=== PATIENT | male | born 1990 | race Caucasian/White ===

== ENCOUNTER → 2019-03-06 12:53 | Outpatient (BNVA) | payer MEDICAID, SELFPAY | PROVIDERS: PCP Family Medicine; Visit Provider Social Worker Clinical | DX: F20.89 Other schizophrenia (principal) | CPT/HCPCS: 90834 ==

== ENCOUNTER → 2019-03-25 13:40 | Outpatient (BNVA) | payer MEDICAID, SELFPAY | PROVIDERS: PCP Family Medicine; Visit Provider Social Worker Clinical | DX: F20.9 Schizophrenia, unspecified (principal) | CPT/HCPCS: 90834 ==

== ENCOUNTER → 2019-04-29 09:25 | Outpatient (BNVA) | payer MEDICAID, SELFPAY | PROVIDERS: PCP Family Medicine; Visit Provider Nurse Practitioner Psychiatric/Mental Health | DX: F20.9 Schizophrenia, unspecified (principal) | CPT/HCPCS: 99214 ==

== ENCOUNTER → 2019-06-03 07:49 | Outpatient (BNVA) | payer MEDICAID, SELFPAY | PROVIDERS: PCP Family Medicine; Visit Provider Nurse Practitioner Psychiatric/Mental Health | DX: F20.9 Schizophrenia, unspecified (principal) | CPT/HCPCS: 99213 ==

== ENCOUNTER → 2019-07-01 08:25 | Outpatient (BNVA) | payer MEDICAID, SELFPAY | PROVIDERS: PCP Family Medicine; Visit Provider Nurse Practitioner Psychiatric/Mental Health | DX: Z51.81 Encounter for therapeutic drug level monitoring (principal); F20.9 Schizophrenia, unspecified; F32.9 Major depressive disorder, single episode, unspecified; F17.210 Nicotine dependence, cigarettes, uncomplicated; F33.42 Major depressive disorder, recurrent, in full remission | CPT/HCPCS: 99213 ==

== ENCOUNTER → 2019-07-29 12:58 | Outpatient (BNVA) | payer MEDICAID, SELFPAY | PROVIDERS: PCP Family Medicine; Visit Provider Nurse Practitioner Psychiatric/Mental Health | DX: F20.9 Schizophrenia, unspecified (principal); Z79.899 Other long term (current) drug therapy | CPT/HCPCS: 99213 ==

== ENCOUNTER → 2019-07-31 08:28 | Outpatient (BNVA) | payer MEDICAID, SELFPAY | PROVIDERS: PCP Family Medicine; Visit Provider Social Worker Clinical | DX: F20.9 Schizophrenia, unspecified (principal); F32.9 Major depressive disorder, single episode, unspecified | CPT/HCPCS: 90834 ==

== ENCOUNTER → 2019-08-26 07:45 | Outpatient (BNVA) | payer MEDICAID, SELFPAY | PROVIDERS: PCP Family Medicine; Visit Provider Nurse Practitioner Psychiatric/Mental Health | DX: F20.9 Schizophrenia, unspecified (principal); Z51.81 Encounter for therapeutic drug level monitoring; F33.42 Major depressive disorder, recurrent, in full remission; Z79.899 Other long term (current) drug therapy | CPT/HCPCS: 80053; 80061; 83036; 99213 ==

== ENCOUNTER 2019-08-27 20:23 | Emergency (ER) | payer MEDICAID, SELFPAY ==
[2019-08-27 20:29] VITALS: BP 150/77; PULSE 108; RESP 18; TEMP 37.3; O2SAT 98; BMI 22.1
--- NOTE | 2019-08-27 21:05 | W.ED.GENADLT ---
HPI - General Adult General: Chief complaint: General Medical Stated complaint: spot on tongue Time Seen by Provider: 08/27/19 20:59 Source: patient Mode of arrival: ambulatory Limitations: no limitations History of Present Illness: HPI narrative: 28-year-old male states he has had irritation along with pain to the side of his tongue over the last 3 days. He states he had something similar 1 month ago. He denies any fevers. He denies any bleeding. He denies any worsening improving factors. He denies any difficulty swallowing. Associated symptoms: Deny chest pain, dyspnea, headache(s), nausea, rash or vomiting Review of Systems Const: Denies: fever(s), chills, body aches or change in appetite Eyes: Denies: blurry vision or eye discomfort ENMT: Denies: throat pain or dental pain Card: Denies: chest pain Resp: Denies: dyspnea GI: Denies: abdominal pain, nausea, vomiting or diarrhea : Denies: dysuria Musc: Denies: neck pain or back pain Skin/Breast: Denies: rash Neuro: Denies: headache(s) Psych: Denies: depression Davonte/Lymph: Denies: easy bruising All/Imm: Denies: urticaria PFSH ED PFSH: Medical History (Updated 08/27/19 @ 21:05 by Nati Dsouza MD) Chronic schizophrenia Depression Continue to monitor symptoms for definitive diagnosis and response to medication. Schizophrenia Social History (Updated 07/01/19 @ 13:39 by Elinor Mckeon LPN) Smoking and tobacco status: current every day smoker cigarettes Packs smoked per day: 1 Years cigarettes smoked: 7 Quit status (tobacco): not considering quitting Second hand smoke exposure: Yes Physical Exam Const: COMMON NORMALS: no acute distress, patient oriented x3 and healthy appearing HENMT: COMMON NORMALS: normocephalic and atraumatic HEAD & SCALP: normocephalic and atraumatic TEETH & GINGIVA: Yes other (Irritation to the right lateral aspect of patient's tongue) Eye: COMMON NORMALS: Equal, round and reactive pupils present and EOMs intact bilaterally PUPIL: Yes Equal, round and reactive pupils present Neck/C-Spine: COMMON NORMALS: full ROM and supple Chest: COMMONS NORMALS: normal inspection of the chest and normal palpation of entire chest wall Resp: COMMON NORMALS: normal respiratory effort, No retractions, No use of accessory muscles and clear to auscultation bilaterally AUSCULTATION: clear to auscultation bilaterally Cardio: COMMON NORMALS: regular rate, regular rhythm and No murmurs present (Cardio) RATE: regular rate RHYTHM: regular rhythm GI: COMMON NORMALS: Normal to inspection, nondistended, normoactive bowel sounds present, Soft to palpation, non-tender and no masses PALPATION: Yes Soft to palpation Extremity: COMMON NORMALS: normal to inspection and full ROM Neuro: COMMON NORMALS: patient oriented x3, moves all extremities and no focal motor deficits Psych: COMMON NORMALS: mental status grossly normal, Normal thought process present and cooperative THOUGHT PROCESS: Normal thought process present Skin: COMMON NORMALS: no rashes or lesions noted and no wounds GENERAL SKIN EXAM: no rashes or lesions noted Course Vital Signs: Vital signs: Vital Signs Temperature 99.1 F 08/27/19 20:29 Pulse Rate 108 H 08/27/19 20:29 Respiratory Rate 18 08/27/19 20:29 Blood Pressure 150/77 08/27/19 20:29 Pulse Oximetry 98 08/27/19 20:29 MDM - General Adult MDM Narrative: Medical decision making narrative: Joseph presents here with tongue pain along with irritation of his tongue. Patient has no abscess or thrush. He is to follow-up with ear nose and throat in 2 to 4 days and return if worsening. Discharge Plan Discharge Patient Disposition: Home, Self-Care Clinical Impression: Tongue pain Condition: Stable Prescriptions: New Naprosyn 500 mg tablet 500 mg PO BID PRN (Reason: pain) Qty: 20 RF: 0 No Action Invega Sustenna 156 mg/mL syringe 156 mg IM Q30D Qty: 1 RF: 4 paliperidone 6 mg tablet extended release 24hr 6 mg PO QAM Qty: 10 RF: 2 Discharge Orders: Discharge Order (Routine); Ordered 08/27/19 Ordered By: Nati Dsouza Referrals: Vernon Ruiz MD [Primary Care Provider] - Denys Amin MD [Physician] - 1-3 days Discharge Diet: Advance as tolerated Discharge Activity: Resume usual activity Activity Restrictions/Additional Instructions: Take meds as prescribed. Return to ER if worsening or fever. Follow-up with ENT in 2 to 4 days. Coding Level of Care Code ED Automobile Taillight Assembler for Chg Fwd Exam Comprehensive
--- NOTE | 2019-08-29 11:06 | DCPLANNER ---
senior project manager had message to schedule a follow up appointment for patient with . senior project manager printed off patients information, and faxed the information to Dr. Robles office. Clinic will call spring encaser and patient with appointment information.
--- NOTE | 2019-08-30 09:04 | DCPLANNER ---
Camille from Dr. Robles office called family independence case manager stating that a follow up appointment is scheduled for Monday, September 11, 2019 at 2:[address] Amin. Clinic will call patient with appointment information.
--- NOTE | 2019-09-12 14:00 | DCPLANNER ---
Patient did attend appointment with Dr. Amin.
== END 2019-08-27 21:15 | disposition home or self-care (01) ==
PROVIDERS: Emergency Provider Emergency Medicine; PCP Family Medicine
DX: K14.6 Glossodynia (principal); F17.210 Nicotine dependence, cigarettes, uncomplicated
CPT/HCPCS: 12345; 99281; 99282

== ENCOUNTER → 2019-09-23 09:02 | Outpatient (BNVA) | payer MEDICAID, SELFPAY | PROVIDERS: PCP Family Medicine; Visit Provider Nurse Practitioner Psychiatric/Mental Health | DX: F20.9 Schizophrenia, unspecified (principal) | CPT/HCPCS: 96372; 99212 ==

== ENCOUNTER → 2019-10-21 12:45 | Outpatient (BNVA) | payer MEDICAID, SELFPAY | PROVIDERS: PCP Family Medicine; Visit Provider Nurse Practitioner Psychiatric/Mental Health | DX: F20.9 Schizophrenia, unspecified (principal); F41.1 Generalized anxiety disorder | CPT/HCPCS: 96372; 99212 ==

== ENCOUNTER → 2019-11-18 07:58 | Outpatient (BNVA) | payer MEDICAID, SELFPAY | PROVIDERS: PCP Family Medicine; Visit Provider Nurse Practitioner | DX: F20.9 Schizophrenia, unspecified (principal) | CPT/HCPCS: 99203 ==

== ENCOUNTER → 2019-12-30 13:47 | Outpatient (BNVA) | payer MEDICAID, SELFPAY | PROVIDERS: PCP Family Medicine; Visit Provider Nurse Practitioner Psychiatric/Mental Health | DX: F20.9 Schizophrenia, unspecified (principal) | CPT/HCPCS: 96372; 99212 ==

== ENCOUNTER → 2020-01-28 13:26 | Outpatient (BNVA) | payer MEDICAID, SELFPAY | PROVIDERS: PCP Family Medicine; Visit Provider Nurse Practitioner Psychiatric/Mental Health | DX: F20.9 Schizophrenia, unspecified (principal) | CPT/HCPCS: 90471; 96372; 99212 ==

== ENCOUNTER → 2020-02-25 13:10 | Outpatient (BNVA) | payer MEDICAID, SELFPAY | PROVIDERS: PCP Family Medicine; Visit Provider Nurse Practitioner Psychiatric/Mental Health | DX: F20.9 Schizophrenia, unspecified (principal) | CPT/HCPCS: 96372; 99212 ==

== ENCOUNTER → 2020-03-24 14:39 | Outpatient (BNVA) | payer MEDICAID, SELFPAY | PROVIDERS: PCP Family Medicine; Visit Provider Nurse Practitioner Psychiatric/Mental Health | DX: F20.9 Schizophrenia, unspecified (principal) | CPT/HCPCS: 96372; 99214 ==

== ENCOUNTER → 2020-04-21 12:38 | Outpatient (BNVA) | payer MEDICAID, SELFPAY | PROVIDERS: PCP Family Medicine; Visit Provider Nurse Practitioner Psychiatric/Mental Health | DX: F20.9 Schizophrenia, unspecified (principal) | CPT/HCPCS: 96372; 99213 ==

== ENCOUNTER → 2020-05-19 13:15 | Outpatient (BNVA) | payer MEDICAID, SELFPAY | PROVIDERS: PCP Family Medicine; Visit Provider Nurse Practitioner Psychiatric/Mental Health | DX: F20.9 Schizophrenia, unspecified (principal); F32.9 Major depressive disorder, single episode, unspecified | CPT/HCPCS: 96372; 99214 ==

== ENCOUNTER → 2020-06-16 13:06 | Outpatient (BNVA) | payer MEDICAID, SELFPAY | PROVIDERS: PCP Family Medicine; Visit Provider Nurse Practitioner Psychiatric/Mental Health | DX: F20.9 Schizophrenia, unspecified (principal); F32.9 Major depressive disorder, single episode, unspecified | CPT/HCPCS: 96372; 99213 ==

== ENCOUNTER → 2020-07-21 13:34 | Outpatient (BNVA) | payer MEDICAID, SELFPAY | PROVIDERS: PCP Family Medicine; Visit Provider Nurse Practitioner Psychiatric/Mental Health | DX: F20.9 Schizophrenia, unspecified (principal); F32.9 Major depressive disorder, single episode, unspecified; Z79.899 Other long term (current) drug therapy | CPT/HCPCS: 96372; 99213 ==

== ENCOUNTER → 2020-08-18 13:22 | Outpatient (BNVA) | payer MEDICAID, SELFPAY | PROVIDERS: PCP Family Medicine; Visit Provider Nurse Practitioner Psychiatric/Mental Health | DX: F20.9 Schizophrenia, unspecified (principal); F32.9 Major depressive disorder, single episode, unspecified | CPT/HCPCS: 96372; 99214 ==

== ENCOUNTER → 2020-09-15 11:21 | Outpatient (BNVA) | payer MEDICAID, SELFPAY | PROVIDERS: PCP Family Medicine; Visit Provider Nurse Practitioner Psychiatric/Mental Health | DX: F20.9 Schizophrenia, unspecified (principal); F32.9 Major depressive disorder, single episode, unspecified | CPT/HCPCS: 96372; 99213 ==

== ENCOUNTER → 2020-09-25 10:22 | Outpatient (BNVA) | payer MEDICAID, SELFPAY | PROVIDERS: PCP Family Medicine; Visit Provider Nurse Practitioner Psychiatric/Mental Health | DX: Z79.899 Other long term (current) drug therapy (principal) | CPT/HCPCS: 80061; 83036 ==

== ENCOUNTER → 2020-10-13 13:38 | Outpatient (BNVA) | payer MEDICAID, SELFPAY | PROVIDERS: PCP Family Medicine; Visit Provider Nurse Practitioner Psychiatric/Mental Health | DX: F20.9 Schizophrenia, unspecified (principal); F32.9 Major depressive disorder, single episode, unspecified | CPT/HCPCS: 96372; 99213 ==

== ENCOUNTER → 2020-11-12 14:32 | Outpatient (BNVA) | payer MEDICAID, SELFPAY | PROVIDERS: PCP Family Medicine; Visit Provider Nurse Practitioner Psychiatric/Mental Health | DX: F20.9 Schizophrenia, unspecified (principal); F32.9 Major depressive disorder, single episode, unspecified | CPT/HCPCS: 96372; 99213 ==

== ENCOUNTER → 2020-12-10 14:16 | Outpatient (BNVA) | payer MEDICAID, SELFPAY | PROVIDERS: PCP Family Medicine; Visit Provider Nurse Practitioner Psychiatric/Mental Health | DX: F20.9 Schizophrenia, unspecified (principal); F32.9 Major depressive disorder, single episode, unspecified | CPT/HCPCS: 96372; 99213 ==

== ENCOUNTER → 2021-01-07 14:38 | Outpatient (BNVA) | payer MEDICAID, SELFPAY | PROVIDERS: PCP Family Medicine; Visit Provider Nurse Practitioner Psychiatric/Mental Health | DX: F20.9 Schizophrenia, unspecified (principal); F32.9 Major depressive disorder, single episode, unspecified; Z79.899 Other long term (current) drug therapy | CPT/HCPCS: 96372; 99213 ==

== ENCOUNTER → 2021-02-04 14:42 | Outpatient (BNVA) | payer MEDICAID, SELFPAY | PROVIDERS: PCP Family Medicine; Visit Provider Nurse Practitioner Psychiatric/Mental Health | DX: F20.9 Schizophrenia, unspecified (principal); F32.9 Major depressive disorder, single episode, unspecified; Z79.899 Other long term (current) drug therapy | CPT/HCPCS: 85025; 96372; 99213 ==

== ENCOUNTER → 2021-03-04 12:54 | Outpatient (BNVA) | payer MEDICAID, SELFPAY | PROVIDERS: PCP Family Medicine; Visit Provider Nurse Practitioner Psychiatric/Mental Health | DX: F20.9 Schizophrenia, unspecified (principal); F32.9 Major depressive disorder, single episode, unspecified; Z79.899 Other long term (current) drug therapy | CPT/HCPCS: 96372; 99213 ==

== ENCOUNTER → 2021-04-08 12:49 | Outpatient (BNVA) | payer MEDICAID, SELFPAY | PROVIDERS: PCP Family Medicine; Visit Provider Nurse Practitioner Psychiatric/Mental Health | DX: F20.9 Schizophrenia, unspecified (principal); Z79.899 Other long term (current) drug therapy; F32.9 Major depressive disorder, single episode, unspecified | CPT/HCPCS: 96372; 99213 ==

== ENCOUNTER → 2021-05-10 15:27 | Outpatient (BNVA) | payer MEDICAID, SELFPAY | PROVIDERS: PCP Family Medicine; Visit Provider Nurse Practitioner Psychiatric/Mental Health | DX: F32.9 Major depressive disorder, single episode, unspecified (principal); F20.9 Schizophrenia, unspecified; Z79.899 Other long term (current) drug therapy | CPT/HCPCS: 96372; 99213 ==

== ENCOUNTER → 2021-06-10 09:20 | Outpatient (BNVA) | payer MEDICAID, SELFPAY | PROVIDERS: PCP Family Medicine; Visit Provider Nurse Practitioner Psychiatric/Mental Health | DX: F32.9 Major depressive disorder, single episode, unspecified (principal); F20.9 Schizophrenia, unspecified; Z79.899 Other long term (current) drug therapy | CPT/HCPCS: 80053; 96372; 99213 ==

== ENCOUNTER → 2021-07-08 13:50 | Outpatient (BNVA) | payer MEDICAID, SELFPAY | PROVIDERS: PCP Family Medicine; Visit Provider Nurse Practitioner Psychiatric/Mental Health | DX: F32.9 Major depressive disorder, single episode, unspecified (principal); F20.9 Schizophrenia, unspecified; Z79.899 Other long term (current) drug therapy | CPT/HCPCS: 96372; 99213 ==

== ENCOUNTER → 2021-08-05 13:48 | Outpatient (BNVA) | payer MEDICAID, SELFPAY | PROVIDERS: PCP Family Medicine; Visit Provider Nurse Practitioner Psychiatric/Mental Health | DX: F32.9 Major depressive disorder, single episode, unspecified (principal); F20.9 Schizophrenia, unspecified; Z79.899 Other long term (current) drug therapy | CPT/HCPCS: 96372; 99213 ==

== ENCOUNTER → 2022-01-31 11:05 | Outpatient (BNVA) | payer MEDICAID, SELFPAY | PROVIDERS: PCP Family Medicine; Visit Provider Nurse Practitioner Psychiatric/Mental Health | DX: Z79.899 Other long term (current) drug therapy (principal); F20.9 Schizophrenia, unspecified; F32.9 Major depressive disorder, single episode, unspecified | CPT/HCPCS: 80053; 80061; 83036 ==

== ENCOUNTER 2022-11-02 12:32 | Emergency (ER) | payer MEDICAID, SELFPAY ==
[2022-11-02 12:47] VITALS: BP 132/81; PULSE 65; RESP 18; TEMP 36.7; O2SAT 98; BMI 24.3
--- NOTE | 2022-11-02 13:01 | XR_ITS ---
WS: [id number] Exam: XR hand LT min 3V* [id number] Date/Time of Exam: 11/02/2022 1:08 PM Reason For Exam: inury r/o retained FB No fracture or dislocation. No radiopaque foreign bodies are identified. IMPRESSION: 1. Negative LEFT hand.
--- NOTE | 2022-11-02 13:34 | W.ED.WOUNDLC ---
HPI - Wound/Laceration General: Chief Complaint: Wound/Laceration Stated Complaint: Left hand lac Time Seen by Provider: 11/02/22 12:54 History of Present Illness: 32-year-old male presents to emergency department chief complaint of laceration he sustained to his left base of his left index finger. Patient reports he was using a drill bit and still lying a door handle onto a screen door was a drill drill bit broke in which he cut across the base of his left index finger. Patient reports minimal bleeding on scene patient is unsure when his last tetanus shot was he reports full function of the index finger distally reporting no other associated injuries. Associated symptoms: Denies chills, fever(s), nausea or vomiting Review of Systems General: Reports: 10 or more systems reviewed and unremarkable except in HPI and below Const: Denies: fever(s), chills, fatigue or malaise Eyes: Denies: change in vision or blurry vision Card: Denies: chest pain or palpitations Resp: Denies: dyspnea or productive cough GI: Denies: abdominal pain, nausea or vomiting : Denies: flank pain Musc: Denies: extremity pain or extremity swelling Skin/Breast: Reports: new lesions; Denies: rash or pruritus Neuro: Denies: headache(s) Psych: Denies: anxiety or depression Davonte/Lymph: Denies: easy bleeding All/Imm: Denies: urticaria, throat swelling or facial swelling PFSH ED PFSH: Medical History Chronic schizophrenia Depression Psychiatric care Schizophrenia Family History Grandmother Diabetes Social History Smoking and tobacco status: current every day smoker cigarettes Packs smoked per day: 1 Years cigarettes smoked: 10 Quit status (tobacco): not considering quitting Second hand smoke exposure: Yes Alcohol intake: never Substance/Drug Use: never Adopted: No Caregiver/support person: Yes Lives independently: Yes Housing: Apartment Marital status: Single service: No Current occupational status: disabled Current occupational exposures/hazards: No Pets and animals: No Sexually active: No Do you think of yourself as: Lesbian/Weaver/Homosexual Current gender identity: Male Fatou/Mandaeism: Mandaen Financial difficulty paying for basics: Decline to Answer Physical Exam Narrative: EXAM NARRATIVE: 2 cm laceration noted to the base of the left index finger into the deep subcutaneous tissue no foreign body expressed bleeding is minimal full range of motion of the finger noted to flexion extension with no muscular strength loss neurovascularly intact distally Const: COMMON NORMALS: no acute distress, patient oriented x3 and healthy appearing HENMT: COMMON NORMALS: normocephalic and atraumatic HEAD & SCALP: normocephalic and atraumatic Eye: COMMON NORMALS: Equal, round and reactive pupils present and EOMs intact bilaterally PUPIL: Yes Equal, round and reactive pupils present Neck/C-Spine: COMMON NORMALS: full ROM, supple and no JVD Lymph: LYMPHATIC: no lymphadenopathy noted Chest: COMMONS NORMALS: normal inspection of the chest and normal palpation of entire chest wall Resp: COMMON NORMALS: normal respiratory effort, No retractions and clear to auscultation bilaterally EFFORT & INSPECTION: Yes able to speak in complete sentences and Yes symmetric chest movement AUSCULTATION: clear to auscultation bilaterally Cardio: COMMON NORMALS: no JVD, regular rate and regular rhythm RATE: regular rate RHYTHM: regular rhythm GI: COMMON NORMALS: Normal to inspection, nondistended, normoactive bowel sounds present, Soft to palpation and non-tender INSPECTION: Yes normal to inspection PALPATION: Yes Soft to palpation : COMMON NORMALS: Yes no CVA tenderness BLADDER/KIDNEY EXAM: Yes no CVA tenderness Back/Pelvis: COMMON NORMALS: no CVA tenderness Extremity: COMMON NORMALS: normal to inspection and full ROM Neuro: COMMON NORMALS: patient oriented x3, CN's II-XII intact bilaterally, moves all extremities and no focal motor deficits Psych: COMMON NORMALS: mental status grossly normal, Normal thought process present, cooperative and normal affect THOUGHT PROCESS: Normal thought process present Skin: COMMON NORMALS: no rashes or lesions noted; negative for no wounds (Small 2 cm laceration appreciated to the base of the left index finger into) GENERAL SKIN EXAM: no rashes or lesions noted Course Vital Signs: Vital signs: Vital Signs Temperature 98.0 F 11/02/22 12:47 Pulse Rate 65 11/02/22 12:47 Respiratory Rate 18 11/02/22 12:47 Blood Pressure 132/81 11/02/22 12:47 Pulse Oximetry 98 11/02/22 12:47 MDM - Wound/Laceration Medical Decision Making 80 patient appears nontoxic appears in no obvious acute distress does appear somewhat anxious on exam however due to patient's symptoms and condition will undergo a laceration repair prior to this Tdap will be provided as patient is unclear when his last tetanus shot was in which an x-ray of the hand will be obtained to further rule out foreign bodies. X-ray imaging came back unremarkable laceration repair was done above patient tolerated procedure quite well estimated blood loss was none patient remained in stable condition to be subcu discharged home advised to further follow-up primary care in 1 week for suture removal in which the meanwhile to keep the wound clean dry intact and covered to completely healed patient was started on some antibiotics for infection prophylaxis which patient was advised return the interim if any of his symptoms persist or worse. Discharge Plan Discharge Condition: Stable Prescriptions: No Action diphenhydramine HCl [Benadryl Allergy] 25 mg tablet 50 mg PO .qhs PRN (Reason: Sleep) paliperidone 6 mg tablet extended release 24 hr 6 mg PO DAILY Qty: 20 11RF Rx Instructions: one tablet daily, if needed for breakthrough psychotic symptoms escitalopram oxalate 20 mg tablet 20 mg PO .q am Qty: 30 5RF Rx Instructions: Take one tablet by mouth every day Invega Sustenna 156 mg/mL syringe 156 mg IM Q30D Qty: 1 11RF Rx Instructions: Take one injection IM monthly- admininistered at the clinic Coding Level of Care Code ED Card Decorator for Shahid Love
[2022-11-02] MEDS: tetanus-dipt-pertussis 0.5 mL SDV IM (13:36)
[2022-11-02] MEDS: lidocaine 1% INJ 10 mL (per mL) INTRADERMA (13:47)
== END 2022-11-02 14:13 | disposition home or self-care (01) ==
PROVIDERS: Emergency Provider Emergency Medicine
DX: S61.211A Laceration without foreign body of left index finger without damage to nail, initial encounter (principal); W27.8XXA Contact with other nonpowered hand tool, initial encounter; F17.210 Nicotine dependence, cigarettes, uncomplicated; Z23 Encounter for immunization
CPT/HCPCS: 12001; 73130; 90471; 90715; 96372; 99283

== ENCOUNTER 2023-05-09 18:32 | Emergency (ER) | payer MEDICAID, SELFPAY ==
[2023-05-09 18:38] VITALS: BP 129/79; PULSE 93; RESP 18; TEMP 36.7; O2SAT 97; BMI 27.4
--- NOTE | 2023-05-09 18:59 | W.ED.ANIMALB ---
Documented by User: BEATRICE Pineda 05/09/23 19:03 HPI - Animal Bite General: Chief Complaint: Animal Bite Stated Complaint: exposure to rabies, no bites any where Time Seen by Provider: 05/09/23 18:42 Source: patient Mode of arrival: ambulatory Limitations: no limitations History of Present Illness: Patient is a 32-year-old male who presents to the emergency department complaining of rabies exposure onset today. Patient reportedly was holding a friend's cat, that was later sent off to be tested for rabies due to unspecified reasons. Patient states that the cat scratched him on the dorsal wrist and index finger of his right hand, but no other wounds or bites noted. Patient states he is here just for the rabies vaccination series, and denies any symptoms at this time. complaint: animal-related injury Onset (ago): minute(s) Animal: cat Description of animal: household pet and immunizations unknown Mechanism: scratch Associated symptoms: Deny chills, fever(s) or headache(s) Review of Systems General: Reports: 10 or more systems reviewed and unremarkable except in HPI and below Const: Reports: other (Rabies exposure); Denies: fever(s), chills or fatigue Eyes: Denies: change in vision ENMT: Denies: throat pain, ear or mastoid pain or nasal discharge Card: Denies: chest pain, palpitations, swelling of feet/ankles or lightheadedness Resp: Denies: dyspnea, productive cough or wheezing GI: Denies: abdominal pain, nausea, vomiting, diarrhea or constipation : Denies: flank pain, difficulty urinating, dysuria or urinary frequency Musc: Denies: neck pain, back pain or joint pain Skin/Breast: Reports: new lesions (Scratch to right wrist and right finger); Denies: rash Neuro: Denies: headache(s), numbness in extremities or weakness in extremities PFSH ED PFSH: Medical History Psychiatric care Chronic schizophrenia Depression Schizophrenia Family History Grandmother Diabetes Social History Smoking and tobacco/nicotine status: current every day tobacco/nicotine user cigarettes Packs smoked per day: 1 Years cigarettes smoked: 10 Quit status (tobacco/nicotine): not considering quitting Second hand smoke exposure: Yes Alcohol intake: never Substance/Drug Use: never Adopted: No Caregiver/support person: Yes Lives independently: Yes Housing: Apartment Marital status: Single service: No Current occupational status: disabled Current occupational exposures/hazards: No Pets and animals: No Sexually active: No Do you think of yourself as: Lesbian/Weaver/Homosexual Current gender identity: Male Fatou/Congregational: Buddhist Physical Exam Const: COMMON NORMALS: no acute distress, patient oriented x3 and no limitations GENERAL APPEARANCE: cooperative, comfortable and well developed ORIENTATION/CONSCIOUSNESS: Yes awake, Yes oriented to person, Yes oriented to place and Yes oriented to time HENMT: COMMON NORMALS: normocephalic, atraumatic and hearing grossly normal bilaterally HEAD & SCALP: normocephalic and atraumatic Eye: COMMON NORMALS: Equal, round and reactive pupils present, EOMs intact bilaterally and conjunctivae normal CONJUNCTIVA: Yes conjunctivae normal PUPIL: Yes Equal, round and reactive pupils present Neck/C-Spine: COMMON NORMALS: full ROM, supple and no JVD Resp: COMMON NORMALS: normal respiratory effort, No retractions, No use of accessory muscles and clear to auscultation bilaterally AUSCULTATION: clear to auscultation bilaterally Cardio: COMMON NORMALS: no JVD, regular rate, regular rhythm, No clicks present (Cardio), No murmurs present (Cardio) and No rub (Cardio) RATE: regular rate RHYTHM: regular rhythm Extremity: COMMON NORMALS: normal to inspection, full ROM and capillary refill normal Neuro: COMMON NORMALS: patient oriented x3, moves all extremities, no focal motor deficits and no sensory deficits noted SENSORIUM/ORIENTATION: Yes oriented to person, Yes oriented to place and Yes oriented to time Psych: COMMON NORMALS: mental status grossly normal and Normal thought process present THOUGHT PROCESS: Normal thought process present Skin: NARRATIVE SKIN EXAM: Small abrasions noted to the dorsal right wrist and dorsal right index finger, no active bleeding or drainage. No surrounding erythema. Course Vital Signs: Vital signs: Vital Signs Temperature 98.0 F 05/09/23 18:38 Pulse Rate 93 05/09/23 18:38 Respiratory Rate 18 05/09/23 18:38 Blood Pressure 129/79 05/09/23 18:38 Pulse Oximetry 97 05/09/23 18:38 MDM - Animal Bite Medical Decision Making Patient seen and evaluated in the emergency department today for rabies vaccination series. Patient's vitals normal. He has no complaints at this time and states he is here for precautionary reasons. Will send off for evaluation from the state. Patient given initial dose of rabies vaccine with immunoglobulin, and informed to return in 3 days for the next dose. Return precautions given. No radiology studies performed this visit Discharge Plan Discharge Patient Disposition: Home Clinical Impression: Rabies contact Condition: Stable Prescriptions: No Action diphenhydramine HCl [Benadryl Allergy] 25 mg tablet 50 mg PO .qhs PRN (Reason: Sleep) escitalopram oxalate 20 mg tablet 20 mg PO .q am Qty: 30 11RF Rx Instructions: Take one tablet by mouth every day paliperidone 6 mg tablet extended release 24hr 6 mg PO DAILY Qty: 20 11RF Rx Instructions: one tablet daily, if needed for breakthrough psychotic symptoms Invega Sustenna 156 mg/mL syringe 156 mg IM Q30D Qty: 1 5RF Rx Instructions: Take one injection IM monthly- admininistered at the clinic Discharge Orders: Discharge ED (Routine); Ordered 05/09/23 Ordered By: Jamie Cerrato Discharge Diet: Usual diet Discharge Activity: Increase activity as tolerated Patient Instructions: Rabies (ED) Activity Restrictions/Additional Instructions: Your first series of the rabies vaccine was given today. Please follow-up in 3 days for your next vaccine. Return with any new or concerning symptoms. Coding Level of Care Code ED Nuclear Weapons Custodian for Chg Fwd Documented by User: Efra Tadeo DO 05/10/23 06:01 HPI - Animal Bite General: Chief Complaint: Animal Bite Stated Complaint: exposure to rabies, no bites any where Time Seen by Provider: 05/09/23 18:42 PFSH ED PFSH: Medical History Psychiatric care Chronic schizophrenia Depression Schizophrenia Family History Grandmother Diabetes Social History Smoking and tobacco/nicotine status: current every day tobacco/nicotine user cigarettes Packs smoked per day: 1 Years cigarettes smoked: 10 Quit status (tobacco/nicotine): not considering quitting Second hand smoke exposure: Yes Alcohol intake: never Substance/Drug Use: never Adopted: No Caregiver/support person: Yes Lives independently: Yes Housing: Apartment Marital status: Single service: No Current occupational status: disabled Current occupational exposures/hazards: No Pets and animals: No Sexually active: No Do you think of yourself as: Lesbian/Weaver/Homosexual Current gender identity: Male Fatou/Congregational: Buddhist Course Vital Signs: Vital signs: Vital Signs Temperature 98.0 F 05/09/23 18:38 Pulse Rate 93 05/09/23 18:38 Respiratory Rate 18 05/09/23 18:38 Blood Pressure 129/79 05/09/23 18:38 Pulse Oximetry 97 05/09/23 18:38 MDM - Animal Bite Medical Decision Making Patient seen and evaluated in the emergency department today for rabies vaccination series. Patient's vitals normal. He has no complaints at this time and states he is here for precautionary reasons. Will send off for evaluation from the state. Patient given initial dose of rabies vaccine with immunoglobulin, and informed to return in 3 days for the next dose. Return precautions given. Chart reviewed Discharge Plan Discharge Patient Disposition: Home Clinical Impression: Rabies contact Condition: Stable Prescriptions: No Action diphenhydramine HCl [Benadryl Allergy] 25 mg tablet 50 mg PO .qhs PRN (Reason: Sleep) escitalopram oxalate 20 mg tablet 20 mg PO .q am Qty: 30 11RF Rx Instructions: Take one tablet by mouth every day paliperidone 6 mg tablet extended release 24hr 6 mg PO DAILY Qty: 20 11RF Rx Instructions: one tablet daily, if needed for breakthrough psychotic symptoms Invega Sustenna 156 mg/mL syringe 156 mg IM Q30D Qty: 1 5RF Rx Instructions: Take one injection IM monthly- admininistered at the clinic Discharge Orders: Discharge ED (Routine); Ordered 05/09/23 Ordered By: Jamie Cerrato Discharge Diet: Usual diet Discharge Activity: Increase activity as tolerated Patient Instructions: Rabies (ED) Activity Restrictions/Additional Instructions: Your first series of the rabies vaccine was given today. Please follow-up in 3 days for your next vaccine. Return with any new or concerning symptoms. Coding Level of Care Code ED Nuclear Weapons Custodian for Shahid Love
[2023-05-09] MEDS: rabies IG 300 unit/mL SDV 1 mL 1530 UNIT IM (19:12)
[2023-05-09] MEDS: rabies vaccine 2.5 unit SDV IM (19:14)
== END 2023-05-09 19:31 | disposition home or self-care (01) ==
PROVIDERS: Emergency Provider Physician Assistant
DX: Z20.3 Contact with and (suspected) exposure to rabies (principal); Z29.14 Encounter for prophylactic rabies immune globulin; Z23 Encounter for immunization; F17.210 Nicotine dependence, cigarettes, uncomplicated; W55.03XA Scratched by cat, initial encounter
CPT/HCPCS: 90375; 90471; 90675; 96372; 99283

== ENCOUNTER → 2023-07-21 14:55 | Outpatient (BNVA) | payer SELFPAY | PROVIDERS: Visit Provider Nurse Practitioner Psychiatric/Mental Health | DX: Z79.899 Other long term (current) drug therapy (principal) | CPT/HCPCS: 80053; 80061; 83036 ==

== ENCOUNTER → 2024-08-22 16:04 | Outpatient (BNVA) | payer OTHER, SELFPAY ==
[2023-07-24 15:04] VITALS: BP 110/66; BMI 26.7
== END ==
PROVIDERS: Visit Provider Nurse Practitioner Psychiatric/Mental Health
DX: Z79.899 Other long term (current) drug therapy (principal)
CPT/HCPCS: 80053; 80061; 83036

== ENCOUNTER → 2024-12-17 15:53 | Outpatient (BNVA) | payer OTHER, SELFPAY ==
[2024-08-26 11:42] VITALS: BP 122/66; BMI 27.8
== END ==
PROVIDERS: Visit Provider Nurse Practitioner Psychiatric/Mental Health
DX: Z79.899 Other long term (current) drug therapy (principal)
CPT/HCPCS: 85025